=== PATIENT | female | born 1965 | race Caucasian/White ===

== ENCOUNTER → 2021-01-11 | Outpatient (CLI) | payer BC | LOC: KOH-I 08:00 | DX: R10.9 Unspecified abdominal pain (principal); K76.0 Fatty (change of) liver, not elsewhere classified | CPT/HCPCS: 76700 ==

== ENCOUNTER → 2021-01-19 | Outpatient (CLI) | payer BC | LOC: CT 11:30 | DX: R10.9 Unspecified abdominal pain (principal); K42.9 Umbilical hernia without obstruction or gangrene; N20.0 Calculus of kidney | CPT/HCPCS: 74170; Q9967 ==